=== PATIENT | female | born 2000 | race American Indian/Alaskan Native ===

== ENCOUNTER 2021-03-05 22:30 | Emergency (ER) | payer OTHER, SELFPAY ==
--- NOTE | ~2021-03-05 | US_ITS ---
EXAMINATION: US OBSTETRICAL ULTRASOUND CLINICAL INFORMATION: Rule out ectopic . COMPARISON: None. LMP: 01/12/2021. Gestational age by maternal dates is 7 weeks 4 days. Estimated date of delivery by maternal dates is 10/19/2021. TECHNIQUE: Transabdominal sonographic evaluation of the pelvis. FINDINGS: There is a single intrauterine gestational sac with visible yolk sac, embryo/fetus, and cardiac activity. There is a hypoechoic area adjacent to the gestational sac measuring 1 x 0.4 x 0.4 cm. This may represent a small subchorionic bleed. HR: 167 beats per minute. CRL (crown rump length): 3.52 cm (10 weeks 3 days +/- 4 days). ALYSSA (estimated date of delivery): 09/29/2021 +/- 4 days. MATERNAL ADNEXA: The right maternal ovary measures 3 x 1.6 x 1.9 cm. No adnexal mass. The left maternal ovary measures 2.9 x 1.9 x 2.4 cm. No adnexal mass. There is no significant maternal adnexal mass. No maternal pelvic ascites. US/US OB <= 14 weeks fetus IMPRESSION: 1. Single intrauterine gestation with ultrasound gestational age of 10 weeks 3 days +/- 4 days. 2. Estimated date of delivery is 09/29/2021 +/- 4 days. 3. Likely small subchorionic hemorrhage.
[2021-03-05 22:36] VITALS: BP 113/68; PULSE 101; RESP 18; TEMP 36.9; O2SAT 98; BMI 25.3
--- NOTE | 2021-03-05 22:55 | ED.ABDPAIN ---
HPI - Abdominal Pain General Chief Complaint: Nausea/Vomiting/Diarrhea Stated Complaint: ABD PAIN Time Seen by Provider: 03/05/21 22:48 Source: patient Mode of arrival: ambulatory Limitations: no limitations History of Present Illness HPI narrative: patient comes to the emergency room complaining of abdominal pain. Patient states it is sharp, nonradiating, periumbilical and hurts in the right lower quadrant as well. Patient denies diarrhea, she had 2 episodes of vomiting prior to arrival. Patient states the pain is constant, but this gradually getting worse. Related Data Previous Rx's Medication Instructions Recorded nitrofurantoin monohyd/m-cryst 100 mg PO BID #14 cap 03/06/21 [Macrobid] 308-[id number] ac-dha 1 pkg PO DAILY #60 ea 03/06/21 [Prena1 True] Allergies Allergy/AdvReac Type Severity Reaction Status Date / Time No Known Allergies Allergy Verified 03/05/21 22:36 Review of Systems Review of Systems Constitutional : No Weight loss, No Fever, No Chills, No Night Sweats, No Fatigue, No Malaise ENT/Mouth : No Hearing loss, No Ear Pain, No Nasal Congestion, No Sinus Pain, No Hoarseness, No sore throat, No Rhinorrhea, No Swallowing Difficulty Eyes: No Eye Pain, No Swelling, No Redness, No Foreign Body, No Discharge, No Vision Changes Cardiovascular : No Chest Pain, No SOB, No Dyspnea on Exertion, No Orthopnea, No Edema, No Palpitations Respiratory : No Cough, No Sputum, No Wheezing, No Smoke Exposure, No Dyspnea Gastrointestinal : complaining of nausea and vomiting, No Diarrhea, No Constipation, complaining of right right lower quadrant pain, No Hematochezia, No Melena Genitourinary : no irregular bleeding, No Dysuria, No Urinary Frequency, No Hematuria, No Urinary Incontinence, No Urgency, No Flank Pain, No Urinary Flow Changes, No Hesitancy Musculoskeletal : No joint pain, No Myalgias, No Joint Swelling Skin : No Skin Lesions, No rash Neuro : No Weakness, No Numbness, No Paresthesias, No Loss of Consciousness, No Dizziness, No Headache Psych : No Anxiety/Panic, No Depression, No SI/HI/AH/VH, No Social Issues, Heme/Lymph: No Bruising, No Bleeding,No Lymphadenopathy Endocrine : No Polyuria, No Polydipsia, No Temperature Intolerance Physical Exam Vital Signs: Vital Signs: Last Vital Signs Temp 98.5 F 03/05/21 22:36 Pulse 70 03/06/21 01:51 Resp 17 03/06/21 01:51 BP 118/62 03/06/21 01:51 Pulse Ox 99 03/06/21 01:51 Body Mass Index 25.3 Appearance: Alert. Oriented X3. No acute distress. Eyes: Pupils equal, round and reactive to light. ENT: Pharynx normal. Neck: Normal inspection. Neck supple. No lymph nodes noted. No crepitus CVS: Normal heart rate and rhythm. Pulses normal. Normal S1 and S2 Respiratory: No respiratory distress. Breath sounds normal. No Wheezing. No rales Abdomen: Soft , tenderness to palpation over the right lower quadrant, no rebound, no guarding, No rigidity. No distention. Skin: Skin warm and dry. Normal skin color. Normal skin turgor. Extremities: No lower extremity edema. No lower extremity edema. No Lacerations. No Rash Neuro: Oriented X 3. No motor deficit. No sensory deficit. Moving all extermities. No slurred speech. Course Course Course Narrative: patient no longer having any abdominal pain. I discussed the ultrasound with the patient and her partner, including that there is a small subchorionic hemorrhage, likely to reabsorb, but there is a small probability of this creating a spontaneous . Patient will follow-up with her primary care physician MDM - Abdominal Pain Lab Data Result diagrams: 03/05/21 23:43 03/05/21 23:43 Labs: Lab Results 03/05/21 03/05/21 03/05/21 Range/Units 22:47 22:47 22:47 WBC (4.8-10.8) X10*3/uL RBC (4.20-5.50) X10*6/uL Hgb (12.0-16.0) g/dl Hct (37-47) % MCV (80-98) fL MCH (27.0-33.0) pg MCHC (31.0-35.0) g/dl RDW (11.0-16.0) % Plt Count (160-400) X10*3/uL MPV (9.4-12.3) fL Immature Gran % (Auto) (0.0-0.4) % Neut % (Auto) (45-73) % Lymph % (Auto) (20-40) % [place] % (Auto) (2-11) % Eos % (Auto) (0-4) % Baso % (Auto) (0-2) % Lymph # (Auto) (1.2-4.9) X10*3/uL [place] # (Auto) (0.1-1.2) X10*3/uL Eos # (Auto) (0.0-0.4) X10*3/uL Baso # (Auto) (0.0-0.2) X10*3/uL Abs Immat Gran (auto) (0.00-0.03) X10*3/uL Absolute Neuts (auto) (2.0-8.3) X10*3/uL Absolute Nucleated RBC (0.0-0.012) X10*3/uL Nucleated RBC % (auto) (0.0-0.2) /100WBC Sodium (135-145) mmol/L Potassium (3.3-5.1) mmol/L Chloride (96-108) mmol/L Carbon Dioxide (22-29) mmol/L Anion Gap (12-20) BUN (9-16) mg/dL Creatinine (0.5-1.4) mg/dL Estim Creat Clear Calc Estimated GFR Random Glucose (60-115) mg/dL Calcium (8.4-10.2) mg/dL Total Bilirubin (0.0-1.0) mg/dL Direct Bilirubin (0.0-0.5) mg/dL AST (5-31) U/L ALT (0-31) U/L Alkaline Phosphatase (39-117) U/L Total Protein (6.5-8.0) g/dL Albumin (3.5-5.0) g/dL Lipase (8-78) U/L Beta HCG, Quant mIU/mL Urine Color YELLOW Urine Appearance CLEAR Urine pH 6.5 (5.0-8.0) Ur Specific [place] 1.020 (1.005-1.025) Urine Protein TRACE (NEG-TRACE) MG/DL Urine Glucose (UA) NEG (NEG) MG/DL Urine Ketones NEG (NEG) MG/DL Urine Blood NEG (NEG) Urine Nitrite NEG (NEG) Ur Leukocyte Esterase TRACE H (NEG) Urine RBC 0-2 (0) /HPF Urine WBC 1-4 (0-4) /HPF Ur Squamous Epith Cells 2+ /LPF Urine Bacteria TRACE /LPF Urine Mucus TRACE /LPF Urine Test POSITIVE H (NEGATIVE) Urine Opiates Screen Not Detected (Not Detect) Ur Barbiturates Screen Not Detected (Not Detect) Ur Phencyclidine Scrn Not Detected (Not Detect) Ur Amphetamines Screen Not Detected (Not Detect) U Benzodiazepines Scrn Not Detected (Not Detect) Urine Cocaine Screen Not Detected (Not Detect) U Marijuana (THC) Screen POSITIVE H (Not Detect) 03/05/21 03/05/21 Range/Units 23:43 23:43 WBC 9.8 (4.8-10.8) X10*3/uL RBC 3.93 L (4.20-5.50) X10*6/uL Hgb 11.7 L (12.0-16.0) g/dl Hct 34.8 L (37-47) % MCV 88.5 (80-98) fL MCH 29.8 (27.0-33.0) pg MCHC 33.6 (31.0-35.0) g/dl RDW 13.5 (11.0-16.0) % Plt Count 229 (160-400) X10*3/uL MPV 11.2 (9.4-12.3) fL Immature Gran % (Auto) 0.2 (0.0-0.4) % Neut % (Auto) 72.2 (45-73) % Lymph % (Auto) 18.6 L (20-40) % [place] % (Auto) 6.8 (2-11) % Eos % (Auto) 2.1 (0-4) % Baso % (Auto) 0.1 (0-2) % Lymph # (Auto) 1.8 (1.2-4.9) X10*3/uL [place] # (Auto) 0.7 (0.1-1.2) X10*3/uL Eos # (Auto) 0.2 (0.0-0.4) X10*3/uL Baso # (Auto) 0.0 (0.0-0.2) X10*3/uL Abs Immat Gran (auto) 0.02 (0.00-0.03) X10*3/uL Absolute Neuts (auto) 7.1 (2.0-8.3) X10*3/uL Absolute Nucleated RBC 0.000 (0.0-0.012) X10*3/uL Nucleated RBC % (auto) 0.0 (0.0-0.2) /100WBC Sodium 137 (135-145) mmol/L Potassium 3.7 (3.3-5.1) mmol/L Chloride 107 (96-108) mmol/L Carbon Dioxide 22 (22-29) mmol/L Anion Gap 12 (12-20) BUN 6 L (9-16) mg/dL Creatinine 0.70 (0.5-1.4) mg/dL Estim Creat Clear Calc 122.6 Estimated GFR > 60 Random Glucose 92 (60-115) mg/dL Calcium 8.4 (8.4-10.2) mg/dL Total Bilirubin 0.2 (0.0-1.0) mg/dL Direct Bilirubin < 0.2 (0.0-0.5) mg/dL AST 14 (5-31) U/L ALT 9 (0-31) U/L Alkaline Phosphatase 57 (39-117) U/L Total Protein 6.2 L (6.5-8.0) g/dL Albumin 3.7 (3.5-5.0) g/dL Lipase 11 (8-78) U/L Beta HCG, Quant 37483 mIU/mL Urine Color Urine Appearance Urine pH (5.0-8.0) Ur Specific [place] (1.005-1.025) Urine Protein (NEG-TRACE) MG/DL Urine Glucose (UA) (NEG) MG/DL Urine Ketones (NEG) MG/DL Urine Blood (NEG) Urine Nitrite (NEG) Ur Leukocyte Esterase (NEG) Urine RBC (0) /HPF Urine WBC (0-4) /HPF Ur Squamous Epith Cells /LPF Urine Bacteria /LPF Urine Mucus /LPF Urine Test (NEGATIVE) Urine Opiates Screen (Not Detect) Ur Barbiturates Screen (Not Detect) Ur Phencyclidine Scrn (Not Detect) Ur Amphetamines Screen (Not Detect) U Benzodiazepines Scrn (Not Detect) Urine Cocaine Screen (Not Detect) U Marijuana (THC) Screen (Not Detect) Imaging Data US - abdomen: Radiologist's impression: FINDINGS: There is a single intrauterine gestational sac with visible yolk sac, embryo/fetus, and cardiac activity. There is a hypoechoic area adjacent to the gestational sac measuring 1 x 0.4 x 0.4 cm. This may represent a small subchorionic bleed. HR: 167 beats per minute. CRL (crown rump length): 3.52 cm (10 weeks 3 days +/- 4 days). ALYSSA (estimated date of delivery): 09/29/2021 +/- 4 days. MATERNAL ADNEXA: The right maternal ovary measures 3 x 1.6 x 1.9 cm. No adnexal mass. The left maternal ovary measures 2.9 x 1.9 x 2.4 cm. No adnexal mass. There is no significant maternal adnexal mass. No maternal pelvic ascites. US/US OB <= 14 weeks fetus IMPRESSION: 1. Single intrauterine gestation with ultrasound gestational age of 10 weeks 3 days +/- 4 days. 2. Estimated date of delivery is 09/29/2021 +/- 4 days. 3. Likely small subchorionic hemorrhage. Discharge Plan Discharge Clinical Impression: Qualifiers: Weeks of gestation: 10 weeks Qualified Code(s): Z3A.10 - 10 weeks gestation of Abdominal pain Qualifiers: Abdominal location: right lower quadrant Qualified Code(s): R10.31 - Right lower quadrant pain UTI (urinary tract infection) during Qualifiers: Trimester: first trimester Qualified Code(s): O23.41 - Unspecified infection of urinary tract in , first trimester Patient Disposition: Home, Self-Care Instructions: Abdominal Pain in (ED) Additional Instructions: Please follow-up with your primary care physician tomorrow. If you have any worsening or new symptoms, please return to the emergency room or call 911 Prescriptions: New Prena1 True 30 mg iron- 1.4 mg-300 mg combo pack 1 pkg PO DAILY Qty: 60 RF: 0 nitrofurantoin monohyd/m-cryst [Macrobid] 100 mg capsule 100 mg PO BID Qty: 14 RF: 0 Referrals: Robert Edouard MD [Physician] - 2 days [facility] Past Medical History Medical History Patient denies medical problems Social History Social History Alcohol intake: never Patient Tobacco Use Status: Never used Tobacco Use of substances other than those prescribed or required for medical reasons: Yes Substance Use Type: Marijuana Substance Use Frequency: Daily Advance Directives: No Advance Directives Information Provided: No Patient : No
[2021-03-05 23:00] LABS: Glucose Urine UA NEG (NEG); Leukocyte Esterase Urine TRACE (NEG); Nitrite Urine NEG (NEG); PH 6.5 (5.0-8.0); UACC Culture Trigger YES; Urine Blood NEG (NEG); Urine Ketones NEG (NEG); Urine Protein TRACE MG/DL (NEG-TRACE)
[2021-03-05 23:02] LABS: Appearance Urine CLEAR; Color Urine YELLOW
[2021-03-05 23:03] LABS: UPreg QC Valid YES; Urine Pregnancy POSITIVE (NEGATIVE)
[2021-03-05 23:15] LABS: Bacteria Urine TRACE /LPF; Mucus Urine TRACE /LPF; RBC Urine 0-2 /HPF (0); Squamous Epithelial Cell Urine 2+ /LPF
[2021-03-05 23:49] LABS: Basophils Percent Auto 0.1 % (0-2); Eosinophils Absolute Auto 0.2 X10*3/uL (0.0-0.4); Eosinophils Percent Auto 2.1 % (0-4); Hematocrit 34.8 % (37-47); Hemoglobin 11.7 g/dl (12.0-16.0); Imm Gran Abs Auto 0.02 X10*3/uL (0.00-0.03); Imm Gran Pct Auto 0.2 % (0.0-0.4); Lymphocytes Absolute Auto 1.8 X10*3/uL (1.2-4.9); Lymphocytes Percent Auto 18.6 % (20-40); MANUAL DIFF FLAG NO; Mean Corpuscular HGB Conc 33.6 g/dl (31.0-35.0); Mean Corpuscular Hemoglobin 29.8 pg (27.0-33.0); Mean Corpuscular Volume 88.5 fL (80-98); Mean Platelet Volume 11.2 fL (9.4-12.3); Monocytes Absolute Auto 0.7 X10*3/uL (0.1-1.2); Monocytes Percent Auto 6.8 % (2-11); Neutrophils Absolute Auto 7.1 X10*3/uL (2.0-8.3); Neutrophils Percent Auto 72.2 % (45-73); Platelet Count 229 X10*3/uL (160-400); Red Blood Count 3.93 X10*6/uL (4.20-5.50); Red Cell Distribution Width 13.5 % (11.0-16.0); White Blood Count 9.8 X10*3/uL (4.8-10.8)
[2021-03-06 00:21] LABS: Alanine Aminotransferase 9 U/L (0-31); Albumin Level 3.7 g/dL (3.5-5.0); Alkaline Phosphatase 57 U/L (39-117); Anion Gap 12 (12-20); Aspartate Amino Transferase 14 U/L (5-31); Bilirubin Direct < 0.2 mg/dL (0.0-0.5); Bilirubin Total 0.2 mg/dL (0.0-1.0); Blood Urea Nitrogen 6 mg/dL (9-16); Calcium 8.4 mg/dL (8.4-10.2); Carbon Dioxide 22 mmol/L (22-29); Chloride 107 mmol/L (96-108); Creatinine Clr Calc Pharmacy 122.6; Estimated Glomerular Filt Rate > 60; Glucose Random 92 mg/dL (60-115); Lipase 11 U/L (8-78); Potassium 3.7 mmol/L (3.3-5.1); Sodium 137 mmol/L (135-145); Total Protein 6.2 g/dL (6.5-8.0)
[2021-03-06 01:01] LABS: HCG Quantitative 52836 mIU/mL
[2021-03-06 01:35] LABS: Amphetamine Screen Urine Not Detected (Not Detect); Barbiturates, Urine Not Detected (Not Detect); Benzodiazepines Screen Urine Not Detected (Not Detect); Cannabinoid Screen Urine POSITIVE (Not Detect); Cocaine Screen Urine Not Detected (Not Detect); Opiate Screen Urine Not Detected (Not Detect); Phencyclidine Screen Urine Not Detected (Not Detect)
[2021-03-06 01:51] VITALS: BP 118/62; PULSE 70; RESP 17; O2SAT 99
== END 2021-03-06 03:37 | disposition home or self-care (01) ==
PROVIDERS: Emergency Provider Emergency Medicine; PCP Pediatrics
DX: O23.41 Unspecified infection of urinary tract in pregnancy, first trimester (principal); O99.321 Drug use complicating pregnancy, first trimester; F12.90 Cannabis use, unspecified, uncomplicated; Z3A.10 10 weeks gestation of pregnancy
CPT/HCPCS: 36415; 76801; 80048; 80076; 80307; 81001; 81003; 81025; 83690; 84702; 85025; 87086; 99283; 99284

== ENCOUNTER 2021-07-31 08:10 | Emergency (ER) | payer OTHER, SELFPAY ==
--- NOTE | ~2021-07-31 | XR_ITS ---
EXAMINATION: XR ANKLE, RIGHT CLINICAL INFORMATION: Right ankle pain COMPARISON: None TECHNIQUE: AP, lateral, and mortise views of the right ankle. FINDINGS: There is moderate lateral malleolar soft tissue swelling. The ankle mortise and subtalar joints are normal. No visible acute fracture, dislocation or subluxation seen. XR/XR ankle RT 2V IMPRESSION: Moderate lateral malleolar soft tissue swelling. No visible acute fracture or dislocation seen.
--- NOTE | ~2021-07-31 | XR_ITS ---
EXAMINATION: XR FOOT, RIGHT CLINICAL INFORMATION: Pain and swelling right ankle and foot. COMPARISON: Radiographs right ankle 07/31/2021 TECHNIQUE: AP, lateral, and oblique views of the right foot. FINDINGS: There is no acute or healing fracture or dislocation. Bony mineralization is normal. There is mild spurring proximal dorsal tarsal navicular. No arthropathy. XR/XR foot RT min 3V IMPRESSION: No fracture or dislocation or arthropathy.
[2021-07-31 08:23] VITALS: BP 134/91; PULSE 110; RESP 22; TEMP 36.8; O2SAT 100; BMI 25.3
--- NOTE | 2021-07-31 09:09 | ED.LOWEXIN ---
HPI - Extremity Injury (Lower) General Chief Complaint: Extremity Injury, Lower Stated Complaint: R ANKLE INJ Time Seen by Provider: 07/31/21 09:09 Source: patient and family Mode of arrival: ambulatory Limitations: no limitations History of Present Illness HPI Narrative: 20-year-old female reports that she was walking up the stairs and she missed her step and almost fell although was able to catch herself although twisted her right ankle and since then has been having pain/swelling worse with walking/movement or palpation. Denies head injury loss of consciousness. Denies any other injuries complaints or concerns. Denies any paresthesias. MD complaint: ankle injury Onset (ago): day(s) (Yesterday) Type of Injury: other (Twist injury patient unsure which direction) Place: home Severity: severe Severity scale (1-10): >10 Relieving factors: nothing Exacerbating factors: weight bearing, movement and palpation Context: fall Associated symptoms: swelling and able to partially bear weight Other symptoms: none Related Data Previous Rx's Medication Instructions Recorded nitrofurantoin 100 mg PO BID #14 cap 03/06/21 monohydrate/macrocrystals 100 mg capsule (Macrobid) vit no.105-iron 30 1 pkg PO DAILY #60 ea 03/06/21 mg-folic acid 1.4 mg-dha 300 mg oral pack (Prena1 True) ibuprofen 800 mg tablet 800 mg PO Q8H PRN #14 tab 07/31/21 oxycodone 5 mg tablet 5 mg PO Q6H PRN #14 tab 07/31/21 Allergies Allergy/AdvReac Type Severity Reaction Status Date / Time No Known Allergies Allergy Verified 03/05/21 22:36 Review of Systems Review of Systems: Constitutional : No Weight loss, No Fever, No Chills, No Night Sweats, No Fatigue, No Malaise ENT/Mouth : No Hearing loss, No Ear Pain, No Nasal Congestion, No Sinus Pain, No Hoarseness, No sore throat, No Rhinorrhea, No Swallowing Difficulty Eyes: No Eye Pain, No Swelling, No Redness, No Foreign Body, No Discharge, No Vision Changes Cardiovascular : No Chest Pain, No SOB, No Dyspnea on Exertion, No Orthopnea, No Edema, No Palpitations Respiratory : No Cough, No Sputum, No Wheezing, No Smoke Exposure, No Dyspnea Gastrointestinal : No Nausea, No Vomiting, No Diarrhea, No Constipation, No abdominal Pain, No Hematochezia, No Melena Genitourinary : no irregular bleeding, No Dysuria, No Urinary Frequency, No Hematuria, No Urinary Incontinence, No Urgency, No Flank Pain, No Urinary Flow Changes, No Hesitancy Musculoskeletal : + joint pain/swelling, No Myalgias Skin : No Skin Lesions, No rash Neuro : No Weakness, No Numbness, No Paresthesias, No Loss of Consciousness, No Dizziness, No Headache Psych : No Anxiety/Panic, No Depression, No SI/HI/AH/VH, No Social Issues, Heme/Lymph: No Bruising, No Bleeding,No Lymphadenopathy Endocrine : No Polyuria, No Polydipsia, No Temperature Intolerance Yes all other systems are reviewed and are negative [facility] Past Medical History Attestation statement: The following information was validated with the patient. Medical History Patient denies medical problems Social History Social History Alcohol intake: never Patient Tobacco Use Status: Never used Tobacco Substance Use Type: Marijuana Advance Directives: No Advance Directives Information Provided: Yes Patient : No Physical Exam Vital Signs: Vital Signs: Last Vital Signs Temp 98.2 F 07/31/21 08:23 Pulse 110 H 07/31/21 08:23 Resp 22 H 07/31/21 08:23 BP 134/91 H 07/31/21 08:23 Pulse Ox 100 07/31/21 08:23 Body Mass Index 25.3 vital signs have been reviewed as normal and appeared to be correct. Blood pressure 134/91 Heart rate 110 Respiration rate 22 Temperature normal. Oxygen saturation normal. Appearance: Alert. Oriented X3. No acute distress. Head: Normal external exam. Normocephalic. Atraumatic. Eyes: PERRLA. EOMI. Conjunctiva and sclera normal. Eyelids normal. ENT: Pharynx normal. Uvula midline. Moist mucous membranes. Neck: Normal inspection. Neck supple. FROM. CVS: Normal heart rate and rhythm. Respiratory: No respiratory distress. Painless inspiration. Skin: Skin warm and dry. Normal skin color. Normal skin turgor. No rashes/lesions/lacerations noted. Extremities: Patient with moderate TTP and Soft tissue swelling to right lateral malleolus is with limited range of motion due to pain and swelling. No obvious deformities or tendon/ligament injury. Achilles tendon is intact. No calf tenderness is noted. No lower extremity edema. Otherwise all other Extremities exhibit normal range of motion and nontender. Neuro: Oriented X 3. No motor deficit. No sensory deficit. Reflexes normal. Normal steady gait. No focal neuro deficits noted. Vascular: + radial pulses/+ 2 distal pedal pulses/+2 dorsalis pedis b/l. Normal cap refill. No cyanosis noted to upper extremity nails and lower extremity toes nails. Course Course Course Narrative: 20-year-old female reports that she was walking up the stairs and she missed her step and almost fell although was able to catch herself although twisted her right ankle and since then has been having pain/swelling worse with walking/movement or palpation. Denies head injury loss of consciousness. Denies any other injuries complaints or concerns. Denies any paresthesias. X-ray of right foot/ankle obtained and negative for any acute processes such as fractures only reveals soft tissue swelling. Therefore will place in an Aircast provide crutches and treat symptomatically and instructed follow up with Orthopedic if symptoms persist for longer than 2-3 weeks. Patient understands agrees with this plan. MDM - Extremity Injury (Lower) Medical Records Attestation: I reviewed the patient's medical records. Imaging Data Right ankle/foot x-ray: Attestation: I personally reviewed and interpreted this imaging study as follows: Radiologist's impression: FINDINGS: There is moderate lateral malleolar soft tissue swelling. The ankle mortise and subtalar joints are normal. No visible acute fracture, dislocation or subluxation seen.? XR/XR ankle RT 2V IMPRESSION: Moderate lateral malleolar soft tissue swelling. No visible acute fracture or dislocation seen. FINDINGS: There is no acute or healing fracture or dislocation. Bony mineralization is normal. There is mild spurring proximal dorsal tarsal navicular. No arthropathy.? XR/XR foot RT min 3V IMPRESSION: No fracture or dislocation or arthropathy. Procedures Orthopedic Splinting/Casting Injury #1: Side: right Lower Extremity Injury Location: ankle and foot Lower Extremity Immobilizer: AirCast Other Orthopedic Equipment: crutches Discharge Plan Discharge Clinical Impression: Ankle sprain and strain Patient Disposition: Home, Self-Care Instructions: Ankle Sprain (ED), Crutch Instructions (ED) Prescriptions: New ibuprofen 800 mg tablet 800 mg PO Q8H PRN (Reason: pain) Qty: 14 RF: 0 oxycodone 5 mg tablet 5 mg PO Q6H PRN (Reason: pain) Qty: 14 RF: 0 No Action Prena1 True 30 mg iron- 1.4 mg-300 mg combo pack 1 pkg PO DAILY Qty: 60 RF: 0 nitrofurantoin monohyd/m-cryst [Macrobid] 100 mg capsule 100 mg PO BID Qty: 14 RF: 0 Referrals: Eric Chua MD [Physician] - 2 weeks (If symptoms persist for longer than 2-3 weeks make a follow-up appointment) Jaquelin Veliz [Primary Care Provider] - 2 days Stand Alone Forms: Work/School Release Print Language: Armenian
[2021-07-31] MEDS: oxyCODONE HCl Immed Release 5 MG TABLET PO (09:22)
[2021-07-31] MEDS: Ibuprofen 800 MG TABLET PO (09:22)
== END 2021-07-31 10:30 | disposition home or self-care (01) ==
PROVIDERS: Emergency Provider Emergency Medicine; PCP Pediatrics
DX: S93.401A Sprain of unspecified ligament of right ankle, initial encounter (principal); M25.571 Pain in right ankle and joints of right foot; W07.XXXA Fall from chair, initial encounter; Y93.9 Activity, unspecified; Y92.9 Unspecified place or not applicable; Y99.9 Unspecified external cause status; Z79.899 Other long term (current) drug therapy
CPT/HCPCS: 29515; 73600; 73630; 99283; 99284

== ENCOUNTER 2021-08-08 10:04 | Emergency (ER) | payer OTHER, SELFPAY ==
--- NOTE | ~2021-08-08 | XR_ITS ---
EXAMINATION: XR ANKLE, RIGHT CLINICAL INFORMATION: Right ankle pain COMPARISON: July 31, 2021 TECHNIQUE: AP, lateral, and mortise views of the right ankle. FINDINGS: There is a large amount soft tissue swelling seen about the lateral malleolus and lateral aspect of the midfoot. No dislocation is evident. Ankle mortise appears intact. There is evidence of either acute or chronic nondisplaced fracture/tug lesion involving the dorsal proximal navicula. Clinical correlation to site of pain is recommended and if the pain is centered about the dorsal medial aspect of the midfoot this may represent an acute finding but it does appear to be remote from the majority of soft tissue swelling. XR/XR ankle RT min 3V IMPRESSION: Large amount soft tissue swelling about the dorsal lateral aspect of the right ankle and foot without dislocation or definite fracture in this location. Question acute or chronic injury dorsal proximal aspect of the navicula.
--- NOTE | ~2021-08-08 | CT_ITS ---
EXAMINATION: CT FOOT WITHOUT CONTRAST, RIGHT CLINICAL INFORMATION: Right foot pain with bruising and swelling. COMPARISON: Radiographs from 07/31/2021 and 08/08/2021. TECHNIQUE: Multidetector volumetric imaging of the right foot performed without IV contrast. Coronal and sagittal reformatted images are obtained and reviewed. This CT examination was performed using dose optimization techniques as appropriate, variously including the following: *Automated exposure control *Adjustment of mA and/or kV according to patient size (this includes techniques or standardized protocols for targeted exams where dose is matched to indication/reason for exam; i.e. extremities or head) *Use of iterative reconstruction technique DLP: 171 mGy-cm FINDINGS: There is no acute fracture seen. There is corticated ossification at the dorsal aspect of the navicular base. This may be congenital. Joint spaces are maintained. There is mild lateral soft tissue swelling at the ankle. No underlying fracture. The ankle mortise is congruent. No ankle joint effusion noted. The visualized ankle tendons are grossly intact with appropriate course. CT/CT foot RT wo con IMPRESSION: Mild lateral soft tissue swelling at the ankle. No acute osseous abnormality.
[2021-08-08 10:33] VITALS: BP 119/60; PULSE 76; RESP 16; TEMP 36.7; O2SAT 98; BMI 25.0
--- NOTE | 2021-08-08 10:41 | ED.GENADULT ---
HPI - General Adult General Chief complaint: Extremity Injury, Lower Stated complaint: r ankle pain inj at home week ago Time Seen by Provider: 08/08/21 10:41 Source: patient Limitations: language barrier History of Present Illness HPI narrative: Patient returns ER with continued right foot and ankle pain. Patient originally injured her foot going up the stairs on 07/31/2021 it was evaluated in the ER that time and had a negative foot x-ray. Patient continues with increased swelling. In lateral ankle tenderness. Pain increases with range of motion or weight-bearing. Patient states she has tried to stay off it but it is difficult with a young child. Pains is a 6/10. Patient denies any other complaints. Symptoms are moderate. No nausea vomiting fever chills shortness of breath or other complaints at this time Related Data Previous Rx's Medication Instructions Recorded nitrofurantoin 100 mg PO BID #14 cap 03/06/21 monohydrate/macrocrystals 100 mg capsule (Macrobid) vit no.105-iron 30 1 pkg PO DAILY #60 ea 03/06/21 mg-folic acid 1.4 mg-dha 300 mg oral pack (Prena1 True) ibuprofen 800 mg tablet 800 mg PO Q8H PRN #14 tab 07/31/21 oxycodone 5 mg tablet 5 mg PO Q6H PRN #14 tab 07/31/21 Allergies Allergy/AdvReac Type Severity Reaction Status Date / Time No Known Allergies Allergy Verified 03/05/21 22:36 Review of Systems Constitutional: Constitutional: Denies chills, Denies fever(s) and Denies headache(s) ENT: Denies headache(s) and Denies sore throat Cardiovascular: Cardiovascular: Denies chest pain and Denies dyspnea Respiratory: Respiratory: Denies dyspnea Gastrointestinal: Gastrointestinal: Denies diarrhea, Denies nausea and Denies vomiting Musculoskeletal: Musculoskeletal: Denies back pain and Reports arthralgias Comments: Right ankle foot pain Neurologic: Denies headache(s) Psychiatric: Psychiatric: Denies anxiety Endocrine: Endocrine: Reports no additional endocrine complaints Hematologic/Lymphatic: Hematologic/Lymphatic: Reports no additional hematologic/lymphatic complaints Allergic/Immunologic: Allergic/Immunologic: Reports no additional allergic/immunologic complaints [facility] Past Medical History Attestation statement: The following information was validated with the patient. Medical History Patient denies medical problems Social History Social History Alcohol intake: never Patient Tobacco Use Status: Never used Tobacco Substance Use Type: Marijuana Advance Directives: No Advance Directives Information Provided: No Patient : No Physical Exam Vital Signs: Vital Signs: Last Vital Signs Temp 98.0 F 08/08/21 10:33 Pulse 76 08/08/21 10:33 Resp 16 08/08/21 10:33 BP 119/60 08/08/21 10:33 Pulse Ox 98 08/08/21 10:33 BMI result Body Mass Index 25.0 vital signs have been reviewed as normal and appeared to be correct. Blood pressure normal. Heart rate normal. Respiration rate normal. Temperature normal. Oxygen saturation normal. Appearance: Alert. Oriented X3. No acute distress. Head: Normal external exam. Normocephalic. Atraumatic. Eyes: PERRLA. EOMI. Conjunctiva and sclera normal. Eyelids normal. ENT: Pharynx normal. Uvula midline. Moist mucous membranes. N Neck: Soft full range of motion CVS: Heart regular rate and rhythm no murmurs and rubs Respiratory: Breath sounds are clear to auscultation bilaterally. No accessory muscle use noted. Back: Full range of motion noted. Skin: Skin warm and dry. Normal skin color. Positive ecchymosis noted 2nd 3rd distal right toes. Positive edema to the right ankle and foot Extremities: Positive tenderness right lateral malleolus minimal tenderness over the dorsum of the right for positive pulses positive supination edema noted Neuro: Oriented X 3. No motor deficit. No sensory deficit. Reflexes normal. Course Course Course Narrative: Navicular fracture Right foot contusion Right ankle sprain Toe fracture Patient was originally seen on 07/31/2021 with a negative foot x-ray at that time. Patient returns today with increased swelling and pain right lateral ankle to dorsum of the foot. Ankle x-ray done today and showed question old navicular injury versus acute. Will get a CT of the foot at this time case discussed with Dr. Us she agrees with treatment and plan. 12:[address] scan showed no obvious signs of navicular fracture patient was contacted and is aware Medical Decision Making Imaging Data ct foot: Radiologist's impression: [address] [address] [address] Scan Report Signed Patient: Prince Plunkett MR#: [id number] : 2000 Acct:[id number] Age/Sex: 20 / F ADM Date: 08/08/21 Loc: HO.ED Attending Dr: Ordering Physician: Jaime Elias Date of Service: 08/08/21 Procedure(s): CT foot RT wo con Accession Number(s): [id number] cc: Jaime Elias ~ EXAMINATION: CT FOOT WITHOUT CONTRAST, RIGHT CLINICAL INFORMATION: Right foot pain with bruising and swelling.? ? COMPARISON: Radiographs from 07/31/2021 and 08/08/2021.? ? ? TECHNIQUE: Multidetector volumetric imaging of the right foot performed without IV contrast. Coronal and sagittal reformatted images are obtained and reviewed. This CT examination was performed using dose optimization techniques as appropriate, variously including the following: *Automated exposure control *Adjustment of mA and/or kV according to patient size (this includes techniques or standardized protocols for targeted exams where dose is matched to indication/reason for exam; i.e. extremities or head) *Use of iterative reconstruction technique DLP: 171 mGy-cm FINDINGS: There is no acute fracture seen. There is corticated ossification at the dorsal aspect of the navicular base. This may be congenital. Joint spaces are maintained. There is mild lateral soft tissue swelling at the ankle. No underlying fracture. The ankle mortise is congruent. No ankle joint effusion noted. The visualized ankle tendons are grossly intact with appropriate course. CT/CT foot RT wo con IMPRESSION: Mild lateral soft tissue swelling at the ankle. No acute osseous abnormality.? Dictated By: Lobo Ricks MD Signed By: <Electronically signed by Lobo Ricks MD in OV> 08/08/21 1213 DD/ 1206 TD/TT:? Boat Carpenter: PRINCE Discharge Plan Discharge Clinical Impression: Pain in joint involving right ankle and foot Patient Disposition: Home, Self-Care Additional Instructions: Rest ice elevation Return if symptoms worsen Will call you with CT results Prescriptions: No Action Prena1 True 30 mg iron- 1.4 mg-300 mg combo pack 1 pkg PO DAILY Qty: 60 RF: 0 nitrofurantoin monohyd/m-cryst [Macrobid] 100 mg capsule 100 mg PO BID Qty: 14 RF: 0 ibuprofen 800 mg tablet 800 mg PO Q8H PRN (Reason: pain) Qty: 14 RF: 0 oxycodone 5 mg tablet 5 mg PO Q6H PRN (Reason: pain) Qty: 14 RF: 0 Stand Alone Forms: Work/School Release Interventions: ED Discharge Assessment Last Done: 08/08/21 12:04 Discharge Date/Time: 08/08/21 12:04
== END 2021-08-08 12:04 | disposition home or self-care (01) ==
PROVIDERS: Emergency Provider Emergency Medicine; PCP Pediatrics
DX: M25.571 Pain in right ankle and joints of right foot (principal); S93.401D Sprain of unspecified ligament of right ankle, subsequent encounter; X50.1XXD Overexertion from prolonged static or awkward postures, subsequent encounter
CPT/HCPCS: 73610; 73700; 99283; 99284

== ENCOUNTER 2021-11-27 12:25 | Emergency (ER) | payer OTHER, SELFPAY ==
--- NOTE | 2021-11-27 | ECG_ITS ---
Test Reason : CHEST PAIN Blood Pressure : / mmHG Vent. Rate : 088 BPM Atrial Rate : 088 BPM P-R Int : 164 ms QRS Dur : 088 ms QT Int : 354 ms P-R-T Axes : 011 059 016 degrees QTc Int : 428 ms Normal sinus rhythm Normal ECG When compared with ECG of 02-JAN-2015 11:11, No significant change was found Referred By: Generic ED Physician Electronically Signed By:TRINO SCHMIDT
[2021-11-27 12:36] VITALS: BP 124/63; PULSE 89; RESP 17; TEMP 36.6; O2SAT 98; BMI 33.7
[2021-11-27 12:54] LABS: MANUAL DIFF FLAG NO
[2021-11-27 12:57] LABS: Basophils Percent Auto 0.3 % (0-2); Eosinophils Absolute Auto 0.1 X10*3/uL (0.0-0.4); Eosinophils Percent Auto 0.5 % (0-4); Hematocrit 37.5 % (37.0-47.0); Imm Gran Abs Auto 0.03 X10*3/uL (0.00-0.03); Imm Gran Pct Auto 0.3 % (0.0-0.4); Lymphocytes Absolute Auto 1.3 X10*3/uL (1.2-4.9); Lymphocytes Percent Auto 12.3 % (20-40); Mean Corpuscular Volume 87.6 fL (80.0-98.0); Mean Platelet Volume 11.3 fL (9.4-12.3); Monocytes Absolute Auto 0.6 X10*3/uL (0.1-1.2); Monocytes Percent Auto 5.4 % (2-11); Neutrophils Absolute Auto 8.6 x10*3/uL (2.0-8.3); Neutrophils Percent Auto 81.2 % (45-73); Platelet Count 298 X10*3/uL (160-400); Red Blood Count 4.28 X10*6/uL (4.20-5.50); Red Cell Distribution Width 14.4 % (11.0-16.0); White Blood Count 10.5 X10*3/uL (4.8-10.8)
[2021-11-27 13:08] LABS: Anion Gap 12 (12-20); Blood Urea Nitrogen 8 mg/dL (9-16); Calcium 9.6 mg/dL (8.4-10.2); Carbon Dioxide 26 mmol/L (22-29); Chloride 104 mmol/L (96-108); Estimated Glomerular Filt Rate > 60; Glucose Random 106 mg/dL (60-115); Potassium 4.1 mmol/L (3.3-5.1); Sodium 138 mmol/L (135-145)
[2021-11-27 13:16] LABS: Troponin-I High Sensitivity < 3.5 ng/L (<3.5-17.0)
--- NOTE | 2021-11-27 15:51 | ED_ITS ---
HPI - Chest Pain General Chief Complaint: Chest Pain Stated Complaint: Chest pain Time Seen by Provider: 11/27/21 15:51 Source: patient Mode of arrival: ambulatory Limitations: no limitations History of Present Illness HPI narrative: Patient is a 21 year old female presenting to the emergency department today with epigastric pain. Patient states that she is having some epigastric pain and has been for the last 4 days. Patient states that it is worse with a deep breath and bending over. Patient denies any dizziness, lightheadedness, vomiting, fever, chills, blurry vision, double vision, loss of vision, chest pain, difficulty breathing, shortness of breath, back pain, night sweats, pain with urination, increased urinary frequency, increased urinary urgency, blood in her urine or stool, syncope or a near syncopal episode, recent trauma or falls, bowel incontinence, bladder incontinence, bowel retention, bladder retention, or any other complaints at this time. Pain location: epigastric Pain radiation: none Severity: mild Pain scale (0-10): 3 Quality: dull Relieving factors: nothing Exacerbating factors: nothing Associated symptoms: nausea Treatment prior to arrival: none Related Data Previous Rx's Medication Instructions Recorded nitrofurantoin 100 mg PO BID #14 cap 03/06/21 monohydrate/macrocrystals 100 mg capsule (Macrobid) vit no.105-iron 30 1 pkg PO DAILY #60 ea 03/06/21 mg-folic acid 1.4 mg-dha 300 mg oral pack (Prena1 True) ibuprofen 800 mg tablet 800 mg PO Q8H PRN #14 tab 07/31/21 oxycodone 5 mg tablet 5 mg PO Q6H PRN #14 tab 07/31/21 ondansetron 4 mg disintegrating 4 mg PO Q8H 3 Days #9 tab 11/27/21 tablet Allergies Allergy/AdvReac Type Severity Reaction Status Date / Time No Known Allergies Allergy Verified 03/05/21 22:36 Review of Systems Constitutional: Constitutional: Reports no additional constitutional complai nts, Denies chills, Denies fever(s) and Denies night sweats Eyes: Eyes: Reports no additional eye complaints, Denies blurry vision, Denies change in vision, Denies diplopia, Denies eye discharge, Denies loss of vision and Denies eye pain ENT: Denies dizziness Cardiovascular: Cardiovascular: Reports no additional cardiovascular complaints, Denies chest pain, Denies lightheadedness, Denies Loss of Consciousness and Denies dyspnea Respiratory: Respiratory: Reports no additional respiratory complaints and D enies dyspnea Gastrointestinal: Gastrointestinal: Reports no additional gastrointestinal complaints, Denies abdominal pain, Denies melena, Denies hematochezia, Denies change in bowel habits and Denies change in stool character Comments: epigastric pain Genitourinary: Genitourinary: Denies hematuria, Denies urinary frequency, Denies dysuria, Denies urinary incontinence, Denies urinary hesitancy and Denies urinary urgency Musculoskeletal: Musculoskeletal: Reports no additional musculoskeletal complaints, Denies numbness and Denies tingling Neurologic: Denies dizziness, Denies loss of vision, Denies numbness and Denies tingling Psychiatric: Psychiatric: Reports no additional psychiatric complaints Endocrine: Endocrine: Reports no additional endocrine complaints Hematologic/Lymphatic: Hematologic/Lymphatic: Reports no additional hematologic/lymphatic complaints Allergic/Immunologic: Allergic/Immunologic: Reports no additional allerg ic/immunologic complaints PMFSH Past Medical History Attestation statement: The following information was validated with the patient. Source: old records reviewed Medical History Patient denies medical problems Social History Social History Alcohol intake: never Patient Tobacco Use Status: Never used Tobacco Substance Use Type: Marijuana Advance Directives: No Advance Directives Information Provided: No Physical Exam Vital Signs: Vital Signs: Last Vital Signs Temp 97.9 F 11/27/21 12:36 Pulse 70 11/27/21 17:42 Resp 16 11/27/21 17:42 BP 118/64 11/27/21 17:42 Pulse Ox 98 11/27/21 17:42 BMI result Body Mass Index 33.7 Const: General: cooperative, no acute distress, alert and awake Nutritional Appearance: well nourished Orientation/consciousness: patient oriented x3 Limitations: no limitations HEENT: Head: Yes normal to inspection and Yes atraumatic Ears: hearing grossly normal bilaterally and external ears normal General nose exam: Normal external nose present, no nasal discharge noted and no epistaxis Face and sinus: Yes normal facial exam, No abrasion and No laceration Mouth: Normal oral and palatal mucosa present, no drooling and no muffled voice Eyes: General: appearance normal, both eyes and all related structures Periorbital: periorbital findings normal Eyelids: Yes eyelids normal Conjunctivae: conjunctivae normal Pupils: Equal, round and reactive pupils present EOM: EOMs intact bilaterally Neck: Neck: Yes normal visual inspection, Yes full ROM and Yes no lymphadenopathy Chest: Chest palpation & inspection: normal inspection of the chest Resp: Effort & Inspection: normal respiratory effort and able to speak in complete sentences Auscultation: clear to auscultation bilaterally Cardio: Rate: regular rate Rhythm: regular rhythm GI: Inspection: Yes normal to inspection Neuro: General: patient oriented x3 and moves all extremities Cranial nerves: Yes Equal, round and reactive pupils present Cognition (Neuro): normal cognition Motor exam (neuro): 5/5 motor strength present throughout Sensory Exam: Normal double simultaneous stimulation for sensation Coordina tion: [id number] test normal Extrem: General: Yes normal to inspection, Yes full ROM and Yes capillary refill normal Psych: Appearance: grossly normal Mental Status: mental status grossly normal Affect: normal affect Attitude: cooperative Thought process: Normal thought process present Thought content: Normal thought content present Insight: Good insight present (Psych) MDM - Chest Pain MDM Narrative Medical decision making narrative: Patient is a 21 year old female presenting to the emergency department today with epigastric pain. Patient's physical exam was unremarkable. Patient's blood work was unremarkable. Patient's urine showed no acute process. Patient's EKG was unremarkable. I explained my physical exam findings as well as all test results to the patient. I answered all questions asked by the patient. Patient received IM Toradol and PO Maalox which she stated helped her symptoms significantly. I stressed the importance of the patient taking her medication as prescribed. I stressed the importance of the patient following up with her primary care provider. I stressed the importance of the patient returning to the emergency department immediately if [her symptoms were to worsen or if she were to develop any dizziness, shortness of breath, difficulty breathing, chest pain, blurry vision, loss of vision, nausea, vomiting, abdominal pain, fever, chills, back pain, or any other complaints. Patient verbalized agreement and understanding with this treatment plan and discharge. Differential Diagnosis Differential diagnosis: Likely atypical chest pain and costochondritis Differential diagnosis: GERD Medical Records Data Attestation: I reviewed the patient's medical records. Lab Data Attestation: I reviewed the patient's lab results. Result diagrams: 11/27/21 12:46 11/27/21 12:46 Labs: Lab Results 11/27/21 11/27/21 11/27/21 Range/Units 12:46 12:46 12:46 WBC 10.5 (4.8-10.8) X10*3/uL RBC 4.28 (4.20-5.50) X10*6/uL Hgb 12.0 (12.0-16.0) g/dl Hct 37.5 (37.0-47.0) % MCV 87.6 (80.0-98.0) fL MCH 28.0 (27.0-33.0) pg MCHC 32.0 (31.0-35.0) g/dl RDW 14.4 (11.0-16.0) % Plt Count 298 (160-400) X10*3/uL MPV 11.3 (9.4-12.3) fL Immature Gran % (Auto) 0.3 (0.0-0.4) % Neut % (Auto) 81.2 H (45-73) % Lymph % (Auto) 12.3 L (20-40) % [place] % (Auto) 5.4 (2-11) % Eos % (Auto) 0.5 (0-4) % Baso % (Auto) 0.3 (0-2) % Lymph # (Auto) 1.3 (1.2-4.9) X10*3/uL Weston # (Auto) 0.6 (0.1-1.2) X10*3/uL Eos # (Auto) 0.1 (0.0-0.4) X10*3/uL Baso # (Auto) 0.0 (0.0-0.2) X10*3/uL Abs Immat Gran (auto) 0.03 (0.00-0.03) X10*3/uL Absolute Neuts (auto) 8.6 H (2.0-8.3) x10*3/uL Absolute Nucleated RBC 0.000 (0.0-0.012) X10*3/uL Nucleated RBC % (auto) 0.0 (0.0-0.2) /100WBC Sodium 138 (135-145) mmol/L Potassium 4.1 (3.3-5.1) mmol/L Chloride 104 (96-108) mmol/L Carbon Dioxide 26 (22-29) mmol/L Anion Gap 12 (12-20) BUN 8 L (9-16) mg/dL Creatinine 1.02 (0.5-1.4) mg/dL Estim Creat Clear Calc 103.0 Estimated GFR > 60 Random Glucose 106 (60-115) mg/dL Calcium 9.6 D (8.4-10.2) mg/dL Troponin I High Sens < 3.5 (<3.5-17.0) ng/L Urine Color Urine Appearance Urine pH (5.0-8.0) Ur Specific [place] (1.005-1.025) Urine Protein (NEG-TRACE) MG/DL Urine Glucose (UA) (NEG) MG/DL Urine Ketones (NEG) MG/DL Urine Blood (NEG) Urine Nitrite (NEG) Ur Leukocyte Esterase (NEG) Urine RBC (0) /HPF Urine WBC (0-4) /HPF Ur Squamous Epith Cells /LPF Urine Bacteria /LPF Urine Test (NEGATIVE) 11/27/21 11/27/21 Range/Units 16:36 16:36 WBC (4.8-10.8) X10*3/uL RBC (4.20-5.50) X10*6/uL Hgb (12.0-16.0) g/dl Hct (37.0-47.0) % MCV (80.0-98.0) fL MCH (27.0-33.0) pg MCHC (31.0-35.0) g/dl RDW (11.0-16.0) % Plt Count (160-400) X10*3/uL MPV (9.4-12.3) fL Immature Gran % (Auto) (0.0-0.4) % Neut % (Auto) (45-73) % Lymph % (Auto) (20-40) % Weston % (Auto) (2-11) % Eos % (Auto) (0-4) % Baso % (Auto) (0-2) % Lymph # (Auto) (1.2-4.9) X10*3/uL Weston # (Auto) (0.1-1.2) X10*3/uL Eos # (Auto) (0.0-0.4) X10*3/uL Baso # (Auto) (0.0-0.2) X10*3/uL Abs Immat Gran (auto) (0.00-0.03) X10*3/uL Absolute Neuts (auto) (2.0-8.3) x10*3/uL Absolute Nucleated RBC (0.0-0.012) X10*3/uL Nucleated RBC % (auto) (0.0-0.2) /100WBC Sodium (135-145) mmol/L Potassium (3.3-5.1) mmol/L Chloride (96-108) mmol/L Carbon Dioxide (22-29) mmol/L Anion Gap (12-20) BUN (9-16) mg/dL Creatinine (0.5-1.4) mg/dL Estim Creat Clear Calc Estimated GFR Random Glucose (60-115) mg/dL Calcium (8.4-10.2) mg/dL Troponin I High Sens (<3.5-17.0) ng/L Urine Color RED A Urine Appearance TURBID Urine pH 8.5 H (5.0-8.0) Ur Specific [place] 1.010 (1.005-1.025) Urine Protein 2+ H (NEG-TRACE) MG/DL Urine Glucose (UA) NEG (NEG) MG/DL Urine Ketones NEG (NEG) MG/DL Urine Blood 3+ H (NEG) Urine Nitrite NEG (NEG) Ur Leukocyte Esterase NEG (NEG) Urine RBC 76-150 H (0) /HPF Urine WBC 0 (0-4) /HPF Ur Squamous Epith Cells 2+ /LPF Urine Bacteria 1+ /LPF Urine Test NEGATIVE (NEGATIVE) ECG Data ECG #1: Attestation: I personally reviewed and interpreted this ECG as follows: ECG interpretation date: 11/27/21 ECG interpretation time: 12:31 Prior ECG tracings: available for review Interpretation: Vent. Rate: 088 BPM ? ? Atrial Rate: 088 BPM P-R Int: 164 ms? QRS Dur: 088 ms QT Int: 354 ms ? ? ? P-R-T Axes: 011 059 016 degrees QTc Int: 428 ms ? Normal sinus rhythm Normal ECG When compared with ECG of 02-JAN-2015 11:11, No significant change was found Discharge Plan Discharge Clinical Impression: GERD (gastroesophageal reflux disease), Acute costochondritis Patient Disposition: Home, Self-Care Instructions: Costochondritis (ED), Gastroesophageal Reflux Disease (DC) Additional Instructions: Follow up with your primary care provider. Return to the emergency department immediately if your symptoms worsen or if you develop any dizziness, shortness of breath, difficulty breathing, chest pain, blurry vision, loss of vision, nausea, vomiting, abdominal pain, fever, chills, back pain, or any other complaints. Prescriptions: New ondansetron 4 mg tablet,disintegrating 4 mg PO Q8H 3 Days Qty: 9 0RF No Action Prena1 True 30 mg iron- 1.4 mg-300 mg combo pack 1 pkg PO DAILY Qty: 60 0RF nitrofurantoin monohyd/m-cryst [Macrobid] 100 mg capsule 100 mg PO BID Qty: 14 0RF Rx Instructions: must administer with a meal/food ibuprofen 800 mg tablet 800 mg PO Q8H PRN (Reason: pain) Qty: 14 0RF oxycodone 5 mg tablet 5 mg PO Q6H PRN (Reason: pain) Qty: 14 0RF Referrals: Physician,None [Primary Care Provider] - 2 days (Follow up with your PCP. ) Stand Alone Forms: Work/School Release Interventions: ED Discharge Assessment Last Done: 11/27/21 17:43 Discharge Date/Time: 11/27/21 17:44 Print Language: Lithuanian
[2021-11-27] MEDS: Ketorolac Tromethamine 15 MG/ML VIAL IM (16:31)
[2021-11-27] MEDS: Ondansetron ODT 4 MG TAB.RAPDIS TRANSLINGU (16:32)
[2021-11-27] MEDS: Magnesium Hydrox/Alum Hydrox 30 ML ORAL.SUSP 15 ML PO (16:32)
[2021-11-27 16:49] LABS: UPreg QC Valid YES; Urine Pregnancy NEGATIVE (NEGATIVE)
[2021-11-27 17:39] LABS: Appearance Urine TURBID; Color Urine RED
[2021-11-27 17:40] LABS: UACC Culture Trigger NO
[2021-11-27 17:41] LABS: Glucose Urine UA NEG (NEG); PH 8.5 (5.0-8.0); Urine Blood 3+ (NEG)
[2021-11-27 17:42] VITALS: BP 118/64; PULSE 70; RESP 16; O2SAT 98
[2021-11-27 17:42] LABS: Leukocyte Esterase Urine NEG (NEG); Nitrite Urine NEG (NEG); Urine Ketones NEG (NEG); Urine Protein 2+ MG/DL (NEG-TRACE)
[2021-11-27 17:53] LABS: Bacteria Urine 1+ /LPF; Squamous Epithelial Cell Urine 2+ /LPF
[2021-11-27 17:54] LABS: WBC Urine 0 /HPF (0-4)
== END 2021-11-27 17:44 | disposition home or self-care (01) ==
PROVIDERS: Emergency Provider Emergency Medicine
DX: K21.9 Gastro-esophageal reflux disease without esophagitis (principal); M94.0 Chondrocostal junction syndrome [Tietze]; R10.13 Epigastric pain
CPT/HCPCS: 36415; 80048; 81001; 81025; 84484; 85025; 93005; 96372; 99284; J1885

== ENCOUNTER 2022-12-08 11:47 | Emergency (ER) | payer OTHER, SELFPAY ==
--- NOTE | ~2022-12-08 | XR_ITS ---
EXAMINATION: Left ankle and left foot. CLINICAL INDICATION: Left ankle pain. COMPARISON: None. TECHNIQUE: 3 views left ankle and 3 views left foot. FINDINGS: LEFT ANKLE: There is no visible acute fracture, dislocation or subluxation. Ankle mortise and subtalar joints are normal. No abnormal soft tissue swelling seen. LEFT FOOT: There is no visible acute fracture, dislocation or subluxation. The soft tissues are normal. XR/XR foot LT 2V IMPRESSION: Unremarkable left ankle exam. Unremarkable left foot exam.
--- NOTE | ~2022-12-08 | XR_ITS ---
EXAMINATION: Left ankle and left foot. CLINICAL INDICATION: Left ankle pain. COMPARISON: None. TECHNIQUE: 3 views left ankle and 3 views left foot. FINDINGS: LEFT ANKLE: There is no visible acute fracture, dislocation or subluxation. Ankle mortise and subtalar joints are normal. No abnormal soft tissue swelling seen. LEFT FOOT: There is no visible acute fracture, dislocation or subluxation. The soft tissues are normal. XR/XR ankle LT min 3V IMPRESSION: Unremarkable left ankle exam. Unremarkable left foot exam.
[2022-12-08 12:59] VITALS: BP 118/65; PULSE 85; RESP 16; TEMP 36.6; O2SAT 99; BMI 28.1
--- NOTE | 2022-12-08 13:00 | ED_ITS ---
HPI - General Adult General Chief complaint: Extremity Injury, Lower <BRITTNY Morales - Last Filed: 12/08/22 20:03> Stated complaint: l foot inj <BRITTNY Morales - Last Filed: 12/08/22 20:03> Time Seen by Provider: 12/08/22 13:44 <BRITTNY Morales - Last Filed: 12/08/22 20:03> Source: patient <BRITTNY Cabral - Last Filed: 12/08/22 14:32> Mode of arrival: ambulatory <BRITTNY Cabral - Last Filed: 12/08/22 14:32> Limitations: no limitations <BRITTNY Cabral - Last Filed: 12/08/22 14:32> History of Present Illness HPI narrative: Patient is a 22 year old assigned female at with no significant PMH presenting to the emergency department today with left ankle pain s/p twisting her ankle while playing with her little sister yesterday. Patient states that she has noticed increased pain and swelling to the area. Patient denies any dizziness, lightheadedness, abdominal pain, nausea, vomiting, fever, chills, blurry vision, double vision, loss of vision, chest pain, difficulty breathing, shortness of breath, back pain, night sweats, pain with urination, increased urinary frequency, increased urinary urgency, blood in her urine or stool, syncope or a near syncopal episode, bowel incontinence, bladder incontinence, bowel retention, bladder retention, or any other complaints at this time. <BRITTNY Cabral - Last Filed: 12/08/22 14:32> Onset (ago): day(s) <BRITTNY Cabral - Last Filed: 12/08/22 14:32> Location: left and lower extremity <BRITTNY Cabral - Last Filed: 12/08/22 14:32> Relieving factors: immobilization <BRITTNY Cabral - Last Filed: 12/08/22 14:32> Exacerbating factors: movement <BRITTNY Cabral - Last Filed: 12/08/22 14:32> Related Data Home medications: Previous Rx's Medication Instructions Recorded nitrofurantoin 100 mg PO BID #14 caps 03/06/21 monohydrate/macrocrystals 100 mg capsule (Macrobid) vit no.105-iron 30 1 pkg PO DAILY #60 ea 03/06/21 mg-folic acid 1.4 mg-dha 300 mg oral pack (Prena1 True) ibuprofen 800 mg tablet 800 mg PO Q8H PRN pain #14 tabs 07/31/21 oxycodone 5 mg tablet 5 mg PO Q6H PRN pain #14 tabs 07/31/21 ondansetron 4 mg disintegrating 4 mg PO Q8H 3 days #9 tabs 11/27/21 tablet naproxen 500 mg tablet 500 mg PO BID 7 days #14 tabs 12/08/22 <BRITTNY Morales - Last Filed: 12/08/22 20:03> Allergies/adverse reactions: Allergies Allergy/AdvReac Type Severity Reaction Status Date / Time No Known Allergies Allergy Verified 03/05/21 22:36 <BRITTNY Morales - Last Filed: 12/08/22 20:03> Review of Systems Review of Systems: Yes all other systems are reviewed and are negative <BRITTNY Cabral - Last Filed: 12/08/22 14:32> Constitutional: Constitutional: Reports no additional constitutional complaints <BRITTNY Cabral - Last Filed: 12/08/22 14:32> Eyes: Eyes: Reports no additional eye complaints and Denies loss of vision <BRITTNY Cabral Last Filed: 12/08/22 14:32> ENT: Reports system reviewed and no additional complaints, except as documented and Denies dizziness <BRITTNY Cabral - Last Filed: 12/08/22 14:32> Cardiovascular: Cardiovascular: Reports no additional cardiovascular complaint s and Denies dyspnea on exertion <BRITTNY Cabral - Last Filed: 12/08/22 14:32> Respiratory: Respiratory: Reports no additional respiratory complaints, Denies cough and Denies dyspnea on exertion <BRITTNY Cabral - Last Filed: 12/08/22 14:32> Gastrointestinal: Gastrointestinal: Reports no additional gastrointestinal complaints <BRITTNY Cabral - Last Filed: 12/08/22 14:32> Genitourinary: Genitourinary: Reports no additional female genitourinary complaints <BRITTNY Cabral - Last Filed: 12/08/22 14:32> Musculoskeletal: Musculoskeletal: Reports arthralgias, Reports joint swelling, Reports limited range of motion (left ankle - secondary to pain), Denies numbness and Denies tingling <BRITTNY Cabral - Last Filed: 12/08/22 14:32> Neurologic: Denies dizziness, Denies loss of vision, Denies numbness and Denies tingling <BRITTNY Cabral - Last Filed: 12/08/22 14:32> Psychiatric: Psychiatric: Reports no additional psychiatric complaints <BRITTNY Cabral - Last Filed: 12/08/22 14:32> Endocrine: Endocrine: Reports no additional endocrine complaints <BRITTNY Cabral - Last Filed: 12/08/22 14:32> Hematologic/Lymphatic: Hematologic/Lymphatic: Reports no additional hematologic/lymphatic complaints <BRITTNY Cabral - Last Filed: 12/08/22 14:32> Allergic/Immunologic: Allergic/Immunologic: Reports no additional allergic/immunologic complaints <BRITTNY Cabral - Last Filed: 12/08/22 14:32> [facility] Past Medical History Attestation statement: The following information was validated with the patient. <BRITTNY Cabral - Last Filed: 12/08/22 14:32> Source: old records reviewed and nursing notes reviewed <BRITTNY Cabral - Last Filed: 12/08/22 14:32> Medical History: Medical History Patient denies medical problems <BRITTNY Morales - Last Filed: 12/08/22 20:03> Social History Social History: Social History Alcohol intake: never Patient Tobacco Use Status: Never used Tobacco Substance Use Type: Marijuana Advance Directives: No Advance Directives Information Provided: No <BRITTNY Morales - Last Filed: 12/08/22 20:03> Physical Exam ED Vital Signs: Vital Signs - 24 hr 12/08/22 12:59 Temperature 97.8 F Pulse Rate 85 Respiratory Rate 16 Blood Pressure 118/65 Pulse Oximetry 99 Oxygen Delivery Method Room Air BMI result Body Mass Index 28.1 <BRITTNY Morales - Last Filed: 12/08/22 20:03> Vital Signs - 24 hr 12/08/22 12:59 Temperature 97.8 F Pulse Rate 85 Respiratory Rate 16 Blood Pressure 118/65 Pulse Oximetry 99 Oxygen Delivery Method Room Air BMI result Body Mass Index 28.1 <BRITTNY Cabral - Last Filed: 12/08/22 14:32> Const General: cooperative, healthy appearing and no acute distress <BRITTNY Cabral - Last Filed: 12/08/22 14:32> Nutritional Appearance: well nourished <BRITTNY Cabral - Last Filed: 12/08/22 14:32> Orientation/consciousness: oriented to person, oriented to place, oriented to time and patient oriented x3 <BRITTNY Cabral - Last Filed: 12/08/22 14:32> Limitations: no limitations <BRITTNY Cabral - Last Filed: 12/08/22 14:32> HENMT Head: Yes normal to inspection <BRITTNY Cabral - Last Filed: 12/08/22 14:32> Ears: hearing grossly normal bilaterally <BRITTNY Cabral - Last Filed: 12/08/22 14:32> General nose exam: Normal external nose present <BRITTNY Cabral - Last Filed: 12/08/22 14:32> Face and sinus: Yes normal facial exam, No abrasion and No laceration <BRITTNY Cabral - Last Filed: 12/08/22 14:32> Mouth: Normal oral and palatal mucosa present, no drooling and no muffled voice <BRITTNY Cabral - Last Filed: 12/08/22 14:32> Eyes General: appearance normal, both eyes and all related structures <BRITTNY Cabral - Last Filed: 12/08/22 14:32> Periorbital: periorbital findings normal <BRITTNY Cabral - Last Filed: 12/08/22 14:32> Eyelids: Yes eyelids normal <BRITTNY Cabral - Last Filed: 12/08/22 14:32> Conjunctivae: conjunctivae normal <BRITTNY Cabral - Last Filed: 12/08/22 14:32> Pupils: Equal, round and reactive pupils present <BRITTNY Cabral - Last Filed: 12/08/22 14:32> EOM: EOMs intact bilaterally <Aniyah RomanBRITTNY - Last Filed: 12/08/22 14:32> Neck Neck: Yes normal visual inspection and Yes full ROM <Aniyah RomanBRITTNY - Last Filed: 12/08/22 14:32> Chest Chest palpation & inspection: normal inspection of the chest <Aniyah CrawleyBRITTNY chavis - Last Filed: 12/08/22 14:32> Resp Effort & Inspection: normal respiratory effort and able to speak in complete sentences <Aniyah CrawleyBRITTNY chavis - Last Filed: 12/08/22 14:32> Cardio Rate: regular rate <Aniyah RomanBRITTNY - Last Filed: 12/08/22 14:32> GI Inspection: Yes normal to inspection <Aniyah CrawleyBRITTNY chavis - Last Filed: 12/08/22 14:32> Neuro General: oriented to person, oriented to place, oriented to time and patient oriented x3 <Aniyah CrawleyBRITTNY chavis - Last Filed: 12/08/22 14:32> Cranial nerves: Yes Equal, round and reactive pupils present <Aniyah Roman NM - Last Filed: 12/08/22 14:32> Cognition (Neuro): normal cognition <Aniyah CrawleyBRITTNY chavis - Last Filed: 12/08/22 14:32> Motor exam (neuro): 5/5 motor strength present throughout <Aniyah Roman NM - Last Filed: 12/08/22 14:32> Sensory Exam: Normal double simultaneous stimulation for sensation <Aniyah CrawleyBRITTNY chavis - Last Filed: 12/08/22 14:32> Coordination: [id number] test normal <Aniyah Crawleypartha [facility] Last Filed: 12/08/22 14:32> Extrem Other: minimal swelling present to the left ankle and pain with ROM <Aniyah CrawleyBRITTNY chavis - Last Filed: 12/08/22 14:32> General: Yes capillary refill normal <Aniyah CrawleyBRITTNY chavis - Last Filed: 12/08/22 14:32> Left lower extremity: ankle Details: tenderness, swelling and abnormal ROM Details: pain with active ROM and pain with passive ROM; no lacerations, no ecchymosis, no penetrating wound and achilles tendon exam normal <Aniyahlinwood CrawleyBRITTNY chavis - Last Filed: 12/08/22 14:32> Psych Appearance: grossly normal <BRITTNY Cabral - Last Filed: 12/08/22 14:32> Mental Status: mental status grossly normal <BRITTNY Cabral - Last Filed: 12/08/22 14:32> Affect: normal affect <BRITTNY Cabral - Last Filed: 12/08/22 14:32> Attitude: cooperative <BRITTNY Cabral - Last Filed: 12/08/22 14:32> Thought process: Normal thought process present <BRITTNY Cabral - Last Filed: 12/08/22 14:32> Thought content: Normal thought content present <BRITTNY Cabral Last Filed: 12/08/22 14:32> Insight: Good insight present (Psych) <BRITTNY Cabral - Last Filed: 12/08/22 14:32> Course Course Course Narrative: RME: 22 yold female presents to the ED for left foot pain. patient states twisting her foot yesterday after running after her son. Xray of ankle/foot ordered. <BRITTNY Morales - Last Filed: 12/08/22 20:03> Medications Administered Discontinued Medications Generic Name Dose Route Start Last Admin Trade Name Freq PRN Reason Stop Dose Admin Acetaminophen 975 mg 12/08/22 13:54 12/08/22 14:09 Acetaminophen 325 Mg Tablet PO 12/08/22 13:55 975 mg ONCE ONE Administration <BRITTNY Morales - Last Filed: 12/08/22 20:03> Medications Administered Discontinued Medications Generic Name Dose Route Start Last Admin Trade Name Freq PRN Reason Stop Dose Admin Acetaminophen 975 mg 12/08/22 13:54 12/08/22 14:09 Acetaminophen 325 Mg Tablet PO 12/08/22 13:55 975 mg ONCE ONE Administration <BRITTNY Cabral - Last Filed: 12/08/22 14:32> Procedures Orthopedic Splinting/Casting Injury #1: Side: left <BRITTNY Cabral - Last Filed: 12/08/22 14:32> Lower Extremity Injury Location: ankle <BRITTNY Cabral Last Filed: 12/08/22 14:32> Lower Extremity Immobilizer: boot orthosis <BRITTNY Cabral Last Filed: 12/08/22 14:32> Other Orthopedic Equipment: crutches <BRITTNY Cabral Last Filed: 12/08/22 14:32> Medical Decision Making Medical Decision Making MDM Narrative: Patient is a 22 year old assigned female at with no significant PMH presenting to the emergency department today with left ankle pain. Patient's p hysical exam showed limited ROM of the left ankle secondary to pain and mild swelling, no ecchymosis/deformities. Patient's left foot and ankle x-rays showed no acute process. I explained my physical exam findings as well as all test results to the patient and the patient's sister. I answered all questions asked by the patient and the patient's sister. Patient received a walking boot and crutches which she stated helped her symptoms significantly. Patient's PMS was intact prior to and after walking boot placement. I stressed the importance of the patient following up with her primary care provider and if pain persists >2 weeks, an orthopedic provider. I stressed the importance of the patient returning to the emergency department immediately if her symptoms were to worsen or if she were to develop any dizziness, shortness of breath, difficulty breathing, chest pain, blurry vision, loss of vision, nausea, vomiting, abdominal pain, fever, chills, back pain, or any other complaints. Patient and the patient's sister verbalized agreement and understanding with this treatment plan and discharge. <BRITTNY Cabral Last Filed: 12/08/22 14:32> Differential Diagnosis Differential Diagnoses: The differential diagnosis associated with the presentation includes <BRITTNY Cabral Last Filed: 12/08/22 14:32> ankle sprain, ankle strain <BRITTNY Cabral Last Filed: 12/08/22 14:32> Independent Interpretation I performed an independent interpretation of an: Plain X-Ray <BRITTNY Cabral Last Filed: 12/08/22 14:32> Interpretation: My interpretation is in agreement with the radiologist's impression of these imaging studies. EXAMINATION: Left ankle and left foot. CLINICAL INDICATION: Left ankle pain. COMPARISON: None. TECHNIQUE: 3 views left ankle and 3 views left foot. FINDINGS: LEFT ANKLE: There is no visible acute fracture, dislocation or subluxation. Ankle mortise and subtalar joints are normal. No abnormal soft tissue swelling seen. LEFT FOOT: There is no visible acute fracture, dislocation or subluxation. The soft tissues are normal. XR/XR foot LT 2V IMPRESSION: Unremarkable left ankle exam. ? Unremarkable left foot exam. Dictated By: Kash Dover MD Signed By: Electronically signed by Kash Dover MD 12/08/22 1334 <BRITTNY Cabral - Last Filed: 12/08/22 14:32> Discharge Plan Discharge Clinical Impression: Ankle sprain and strain <BRITTNY Morales - Last Filed: 12/08/22 20:03> Patient Disposition: Home, Self-Care <BRITTNY Morales Last Filed: 12/08/22 20:03> Instructions: Ankle Sprain (ED) <BRITTNY Morales - Last Filed: 12/08/22 20:03> Additional Instructions: Follow up with your primary care provider and if pain persists >2 weeks, an orthopedic provider. Return to the emergency department immediately if your symptoms worsen or if you develop any dizziness, shortness of breath, difficulty breathing, chest pain, blurry vision, loss of vision, nausea, vomiting, abdominal pain, fever, chills, back pain, or any other complaints. <BRITTNY Morales - Last Filed: 12/08/22 20:03> Prescriptions: New naproxen 500 mg tablet 500 mg PO BID 7 Days Qty: 14 0RF No Action Prena1 True 30 mg iron- 1.4 mg-300 mg combo pack 1 pkg PO DAILY Qty: 60 0RF nitrofurantoin monohyd/m-cryst [Macrobid] 100 mg capsule 100 mg PO BID Qty: 14 0RF Rx Instructions: must administer with a meal/food ibuprofen 800 mg tablet 800 mg PO Q8H PRN (Reason: pain) Qty: 14 0RF oxycodone 5 mg tablet 5 mg PO Q6H PRN (Reason: pain) Qty: 14 0RF ondansetron 4 mg tablet,disintegrating 4 mg PO Q8H 3 Days Qty: 9 0RF <BRITTNY Morales - Last Filed: 12/08/22 20:03> Referrals: [facility] [place]] (Call to establish and follow up with a primary care provider. If you already have a primary care provider, please follow up with them.) [facility] [place]Provider Group] (Call to establish and follow up with a primary care provider. If you already have a primary care provider, please follow up with them.) [facility] [Provider Group] (Call to establish and follow up with a primary care provider. If you already have a primary care provider, please follow up with them.) [facility] [place] [facility]] (If pain persists >2 weeks, call to establish and follow up with an orthopedic provider. ) <BRITTNY Morales - Last Filed: 12/08/22 20:03> Stand Alone Forms: Work/School Release <BRITTNY Morales - Last Filed: 12/08/22 20:03> Interventions: ED Discharge Assessment Last Done: 12/08/22 14:09 <BRITTNY Morales - Last Filed: 12/08/22 20:03> Discharge Date/Time: 12/08/22 14:11 <BRITTNY Morales - Last Filed: 12/08/22 20:03> Print Language: Syriac <BRITTNY Morales - Last Filed: 12/08/22 20:03>
[2022-12-08] MEDS: Acetaminophen 325 MG TABLET 975 MG PO (14:09)
== END 2022-12-08 14:11 | disposition home or self-care (01) ==
PROVIDERS: Emergency Provider Emergency Medicine
DX: S93.402A Sprain of unspecified ligament of left ankle, initial encounter (principal); M79.605 Pain in left leg; X50.1XXA Overexertion from prolonged static or awkward postures, initial encounter; Y93.9 Activity, unspecified; Y92.9 Unspecified place or not applicable; Y99.9 Unspecified external cause status; Z79.899 Other long term (current) drug therapy
CPT/HCPCS: 29515; 73610; 73620; 99283

== ENCOUNTER 2023-01-27 10:04 | Emergency (ER) | payer OTHER, SELFPAY ==
[2023-01-27 10:06] VITALS: BP 115/63; PULSE 90; RESP 16; TEMP 36.3; O2SAT 97; BMI 28.5
--- NOTE | 2023-01-27 10:20 | ED_ITS ---
HPI - Skin/Abscess/Foreign Bdy General Chief complaint: Skin/Abscess/Foreign Body Stated complaint: Rash Time Seen by Provider: 01/27/23 10:11 History of Present Illness HPI narrative: patient complains of itchy bumps that started in the hands in , arms, he chest and back which started several days ago There is no pain there is no difficulty breathing or swallowing no swelling in the throat Related Data Previous Rx's Medication Instructions Recorded nitrofurantoin 100 mg PO BID #14 caps 03/06/21 monohydrate/macrocrystals 100 mg capsule (Macrobid) vit no.105-iron 30 1 pkg PO DAILY #60 ea 03/06/21 mg-folic acid 1.4 mg-dha 300 mg oral pack (Prena1 True) ibuprofen 800 mg tablet 800 mg PO Q8H PRN pain #14 tabs 07/31/21 oxycodone 5 mg tablet 5 mg PO Q6H PRN pain #14 tabs 07/31/21 ondansetron 4 mg disintegrating 4 mg PO Q8H 3 days #9 tabs 11/27/21 tablet naproxen 500 mg tablet 500 mg PO BID 7 days #14 tabs 12/08/22 cetirizine 10 mg tablet 10 mg PO DAILY PRN rash/itch #14 01/27/23 tabs permethrin 5 % topical cream 1 appl topical Q14D 2 doses #60 01/27/23 grams prednisone 20 mg tablet 60 mg PO DAILY 3 days #9 tabs 01/27/23 Allergies Allergy/AdvReac Type Severity Reaction Status Date / Time No Known Allergies Allergy Verified 01/27/23 10:28 [facility] Past Medical History Source: nursing notes reviewed Medical History Patient denies medical problems Social History Social History Alcohol intake: never Patient Tobacco Use Status: Never used Tobacco Smoked in Last 30 Days: Yes Use of substances other than those prescribed or required for medical reasons: No Substance Use Type: Marijuana Advance Directives: No Advance Directives Information Provided: No Physical Exam Vital Signs: Vital Signs: Last Vital Signs Temp 97.4 F 01/27/23 10:06 Pulse 90 01/27/23 10:06 Resp 16 01/27/23 10:06 BP 115/63 01/27/23 10:06 Pulse Ox 97 01/27/23 10:06 O2 Del Method Room Air 01/27/23 10:06 BMI result Body Mass Index 28.5 general appearance is no acute distress comfortable relaxed cooperative breathing easily The eyes no redness or discharge The sinuses not congested The pharynx is clear with no swelling of lips tongue or uvula voice is normal no impairment of breathing or swallowing no redness swelling or exudate Neck is supple Chest clear to auscultation bilateral no wheezing Heart no murmur Extremities full range of motion x4 The skin there is a papular rash on arms back of hands, chest and back, there is no areas of erythema no evidence of cellulitis or folliculitis Course Course Course Narrative: patient is treated for possible scabies, or possible allergic rash with cetirizine prednisone and permethrin She is otherwise well appearing and comfortable with no other associated symptoms or complaints and is discharged Medications Administered Discontinued Medications Generic Name Dose Route Start Last Admin Trade Name Freq PRN Reason Stop Dose Admin Loratadine 10 mg 01/27/23 10:34 01/27/23 10:54 Loratadine 10 Mg Tablet PO 01/27/23 10:35 10 mg ONCE ONE Administration Prednisone 60 mg 01/27/23 10:34 01/27/23 10:53 Prednisone 20 Mg Tablet PO 01/27/23 10:35 60 mg ONCE ONE Administration Medical Decision Making Differential Diagnosis Differential Diagnoses: The differential diagnosis associated with the presentation includes (scabies, mites, bed buts) Chronic Conditions Patient?s care impacted by: Other (homelessness and iv drug use) Social Determinants Patient?s care significantly limited by Social Determinants of Health including: Low income and Alcoholism and drug addiction in family Discharge Plan Discharge Clinical Impression: Rash Patient Disposition: Home, Self-Care Additional Instructions: the rash could be from allergy or possibly from scabies so we are treating for both For scabies we are using permethrin cream, apply to the body from the neck to the toes and leave on for 12 hours, then shower and wash off the cream This should be repeated 2 weeks later For possible allergic inflammation we are treating with prednisone and antihistamine, if needed for itching it is okay to repeat the cetirizine dosing a 2nd time, it is okay to use morning and night, but if 1 tablet once a day is adequate there is no need to repeat the dose Follow with primary doctor next week if not better Return to the ER any time any worse condition or any concerns Prescriptions: New permethrin 5 % cream 1 appl topical Q14D Qty: 60 0RF Rx Instructions: apply second treatment 14 days after first treatment if live lice remain prednisone 20 mg tablet 60 mg PO DAILY 3 Days Qty: 9 0RF cetirizine 10 mg tablet 10 mg PO DAILY PRN (Reason: rash/itch) Qty: 14 0RF No Action Prena1 True 30 mg iron- 1.4 mg-300 mg combo pack 1 pkg PO DAILY Qty: 60 0RF nitrofurantoin monohyd/m-cryst [Macrobid] 100 mg capsule 100 mg PO BID Qty: 14 0RF Rx Instructions: must administer with a meal/food ibuprofen 800 mg tablet 800 mg PO Q8H PRN (Reason: pain) Qty: 14 0RF oxycodone 5 mg tablet 5 mg PO Q6H PRN (Reason: pain) Qty: 14 0RF ondansetron 4 mg tablet,disintegrating 4 mg PO Q8H 3 Days Qty: 9 0RF naproxen 500 mg tablet 500 mg PO BID 7 Days Qty: 14 0RF Stand Alone Forms: Work/School Release Interventions: ED Discharge Assessment Last Done: 01/27/23 10:55 Discharge Date/Time: 01/27/23 10:56
[2023-01-27] MEDS: predniSONE 20 MG TABLET 60 MG PO (10:53)
[2023-01-27] MEDS: Loratadine 10 MG TABLET PO (10:54)
== END 2023-01-27 10:56 | disposition home or self-care (01) ==
PROVIDERS: Emergency Provider Emergency Medicine
DX: R21 Rash and other nonspecific skin eruption (principal)
CPT/HCPCS: 99283; 99284

== ENCOUNTER 2023-08-12 13:17 | Emergency (ER) | payer OTHER, SELFPAY ==
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
[2023-08-12 13:44] VITALS: BP 112/70; PULSE 102; RESP 18; TEMP 36.4; O2SAT 99; BMI 32.5
[2023-08-12 14:46] VITALS: BP 108/66; PULSE 86; RESP 16; TEMP 36.6; O2SAT 96
[2023-08-12] MEDS: Ketorolac Tromethamine 15 MG/ML VIAL IM (14:52)
[2023-08-12] MEDS: Cyclobenzaprine HCl 5 MG TABLET PO (14:53)
== END 2023-08-12 14:52 | disposition home or self-care (01) ==
PROVIDERS: Emergency Provider Student in an Organized Health Care Education/Training Program
DX: Z04.1 Encounter for examination and observation following transport accident (principal); R51.9 Headache, unspecified
CPT/HCPCS: 96372; 99284; J1885

== ENCOUNTER 2024-04-28 08:47 | Emergency (ER) | payer OTHER, SELFPAY ==
--- NOTE | ~2024-04-28 | US_ITS ---
EXAMINATION: US ABDOMEN LIMITED CLINICAL INFORMATION: Right upper quadrant abdominal pain, rule out gallbladder etiology. COMPARISON: None available. TECHNIQUE: Real-time imaging of the right upper quadrant abdominal viscera. FINDINGS: GALLBLADDER: Normal. The gallbladder is physiologically distended without evidence of stones, sludge, polyps, wall thickening or pericholecystic fluid. COMMON BILE DUCT: Normal in caliber measuring 0.52 cm in diameter. US/US abdomen limited IMPRESSION: No evidence of gallstones or hepatobiliary duct dilatation. Electronically signed by: Lacy Taylor MD 04/28/2024 11:58 AM EDT
[2024-04-28 09:02] VITALS: BP 108/61; PULSE 82; RESP 16; TEMP 36.7; O2SAT 99; BMI 30.5
--- NOTE | 2024-04-28 09:08 | ECG_ITS ---
Test Reason : chest pain Blood Pressure : / mmHG Vent. Rate : 082 BPM Atrial Rate : 082 BPM P-R Int : 178 ms QRS Dur : 084 ms QT Int : 364 ms P-R-T Axes : 039 060 015 degrees QTc Int : 425 ms Normal sinus rhythm Possible Left atrial enlargement Borderline ECG When compared with ECG of 27-NOV-2021 12:31, No significant change was found Referred By: Generic ED Physician Electronically Signed By:JANIE BORJAS
--- NOTE | 2024-04-28 10:22 | ED.CHESTPAIN ---
HPI - Chest Pain General Chief Complaint: Chest Pain Stated Complaint: Pain under R breast Time Seen by Provider: 04/28/24 10:20 Source: patient and RN notes reviewed Mode of arrival: ambulatory Limitations: no limitations History of Present Illness ED Provider: Heydi Arguello PA-C HPI narrative: This is a 23-year-old female, 5 months , who presents emergency department with complaints of right-sided chest/abdominal pain for the last year. Patient states that she has noticed pain on the right side just underneath her breast for the last year. Denies trauma or injury to this area. She states that the pain worsens at night especially when she is lying on that side. She states that since she has become the pain has become more frequent. She states that over the last 3 days she has vomited which is atypical of her. She denies any fevers, chills, diarrhea or constipation. No chest pain or shortness for breath. Denies pleuritic chest pain. She states that she has felt the pain travels into her back/right shoulder No other complaints or concerns at this time. Timing of current episode: episodic Prior episodes: Yes Onset: during rest Pain location: right chest Severity: moderate Quality: aching Relieving factors: movement Exacerbating factors: movement Treatment prior to arrival: none Risk Factors Coronary artery disease risk factors: none Thoracic aortic dissection risk factors: none Pulmonary embolism risk factors: Related Data On Oral Contraceptives: No Previous Rx's ?Medication ?Instructions ?Recorded nitrofurantoin 100 mg PO BID #14 caps 03/06/21 monohydrate/macrocrystals 100 mg capsule (Macrobid) vit no.105-iron 30 1 pkg PO DAILY #60 ea 03/06/21 mg-folic acid 1.4 mg-dha 300 mg oral pack (Prena1 True) ibuprofen 800 mg tablet 800 mg PO Q8H PRN pain #14 tabs 07/31/21 oxycodone 5 mg tablet 5 mg PO Q6H PRN pain #14 tabs 07/31/21 ondansetron 4 mg disintegrating 4 mg PO Q8H 3 days #9 tabs 11/27/21 tablet naproxen 500 mg tablet 500 mg PO BID 7 days #14 tabs 12/08/22 cetirizine 10 mg tablet 10 mg PO DAILY PRN rash/itch #14 01/27/23 tabs permethrin 5 % topical cream 1 appl topical Q14D 2 doses #60 01/27/23 grams prednisone 20 mg tablet 60 mg (3 x 20 mg) PO DAILY 3 days 01/27/23 #9 tabs cyclobenzaprine 5 mg tablet 5 mg PO TID PRN muscle spasm 7 08/12/23 days #21 tabs Allergies Allergy/AdvReac Type Severity Reaction Status Date / Time No Known Allergies Allergy Verified 04/28/24 09:02 Review of Systems Review of Systems: Yes all other systems are reviewed and are negative Constitutional: Constitutional: Reports as per [facility] Past Medical History Attestation statement: The following information was validated with the patient. Medical History Patient denies medical problems Social History Social History Alcohol intake: never Patient Tobacco Use Status: Never used Tobacco Substance Use Type: Marijuana Advance Directives: No Advance Directives Information Provided: Yes Do you have a plan to hurt others: No Plan Physical Exam Vital Signs: Vital Signs: Last Vital Signs Temp 97.9 F 04/28/24 12:00 Pulse 68 04/28/24 12:00 Resp 16 04/28/24 09:02 BP 104/61 04/28/24 12:00 Pulse Ox 99 04/28/24 12:00 O2 Del Method Room Air 04/28/24 12:00 BMI result Body Mass Index 30.5 Const: General: cooperative, comfortable and no acute distress Orientation/consciousness: patient oriented x3 Limitations: no limitations HEENT: Head: Yes normal to inspection, Yes normocephalic and Yes atraumatic Ears: hearing grossly normal bilaterally General nose exam: Normal external nose present Face and sinus: Yes normal facial exam Mouth: Normal oral and palatal mucosa present, oropharynx normal and moist mucous membranes Throat: Yes posterior oropharynx normal Eyes: General: appearance normal, both eyes and all related structures Eyelids: Yes eyelids normal Conjunctivae: conjunctivae normal Sclerae: sclerae normal Pupils: Equal, round and reactive pupils present EOM: EOMs intact bilaterally Neck: Neck: Yes normal visual inspection, Yes full ROM and Yes no lymphadenopathy Lymphatic: no lymphadenopathy noted Chest: Other: Mild tenderness palpation along the anterior chest wall and ribs Chest palpation & inspection: normal inspection of the chest Resp: Effort & Inspection: normal respiratory effort and able to speak in complete sentences Auscultation: clear to auscultation bilaterally, no crackles, no rales, no rhonchi and no wheezes Cardio: Rate: regular rate Rhythm: regular rhythm Heart sounds: S1 normal heart sound present and S2 normal heart sound present GI: Other: Abdomen is soft, with mild tenderness in the right upper quadrant, no epigastric tenderness. Inspection: Yes normal to inspection Skin: General skin exam: no rashes or lesions noted Trauma: no lacerations or abrasions Wounds: no wounds Neuro: General: patient oriented x3 and moves all extremities Cranial nerves: Yes Equal, round and reactive pupils present Extrem: General: Yes normal to inspection Right upper extremity: normal to inspection Left upper extremity: normal to inspection Right lower extremity: normal to inspection Left lower extremity: normal to inspection Course Reevaluation(s) Reevaluation #1: Ultrasound returns, unremarkable. Blood work returns, slight anemia noted, chemistry within normal limits. Troponin less than 2.7. EKG normal sinus rhythm, no ST elevation or depression. Workup today was reassuring. It is unclear what is causing her symptoms however given that this has been ongoing for the last year, patient should follow-up with PCP. Avoided any chest x-ray or images secondary to risks versus benefits given patient is 5 months . She has no shortness a breath, pleuritic chest pain to warrant any additional images at this time. Lungs are clear to auscultation bilaterally. Given conservative measures as well as strict return precautions. She understands agrees with plan. Patient stable for discharge. Time: 12:55 Medical Decision Making Medical Decision Making MDM Narrative: This is a 23-year-old 5 months female who presents emergency department with complaints of pain right anterior chest, and right upper quadrant for the last year. States that the pain worsens with lying down especially on her right side. She states that since she has been come her pain has become more consistent. She states that over the last 3 days she has had multiple episodes of vomiting which is atypical. She denies any vaginal bleeding or discharge. No complications with the thus far. Denies taking any medications to treat her symptoms. Lungs are clear to auscultation bilaterally. She expresses no shortness of breath or chest pain or pleuritic chest pain. No other complaints or concerns at this time. Differential Diagnosis Differential Diagnoses: The differential diagnosis associated with the presentation includes Cholecystitis, cholelithiasis, costochondritis, pneumonia-unlikely Admission/Observation Consideration of admission/observation: Escalation of care including admission/observation considered Lab Data MDM Lab Attestation statement: I reviewed the patient's lab results. See course comment 04/28/24 11:49 04/28/24 11:49 Labs: Lab Results 04/28/24 Range/Units 11:49 WBC 10.8 (4.8-10.8) X10*3/uL RBC 3.84 L (4.20-5.50) X10*6/uL Hgb 11.3 L (12.0-16.0) g/dl Hct 33.3 L (37.0-47.0) % MCV 86.7 (80.0-98.0) fL MCH 29.4 (27.0-33.0) pg MCHC 33.9 (31.0-35.0) g/dl RDW 14.1 (11.0-16.0) % Plt Count 264 (160-400) X10*3/uL MPV 11.3 (9.4-12.3) fL Immature Gran % (Auto) 0.4 (0.0-0.4) % Neut % (Auto) 77.5 H (45-73) % Lymph % (Auto) 16.3 L (20-40) % Schley % (Auto) 4.9 (2-11) % Eos % (Auto) 0.7 (0-4) % Baso % (Auto) 0.2 (0-2) % Lymph # (Auto) 1.8 (1.2-4.9) X10*3/uL Schley # (Auto) 0.5 (0.1-1.2) X10*3/uL Eos # (Auto) 0.1 (0.0-0.4) X10*3/uL Baso # (Auto) 0.0 (0.0-0.2) X10*3/uL Abs Immat Gran (auto) 0.04 H (0.00-0.03) X10*3/uL Absolute Neuts (auto) 8.4 H (2.0-8.3) x10*3/uL Absolute Nucleated RBC 0.000 (0.0-0.012) X10*3/uL Nucleated RBC % (auto) 0.0 (0.0-0.2) /100WBC Sodium 136 (135-145) mmol/L Potassium 3.6 (3.3-5.1) mmol/L Chloride 107 (96-108) mmol/L Carbon Dioxide 19 L (22-29) mmol/L Anion Gap 14 (12-20) BUN 4 L (9-16) mg/dL Creatinine 0.62 (0.5-1.4) mg/dL Estim Creat Clear Calc 158.2 Estimated GFR > 60 Random Glucose 80 (60-115) mg/dL Calcium 9.2 (8.4-10.2) mg/dL Magnesium 1.9 (1.6-2.6) mg/dL Total Bilirubin 0.2 (0.0-1.0) mg/dL Direct Bilirubin < 0.2 (0.0-0.5) mg/dL AST 12 (5-31) U/L ALT 11 (0-31) U/L Alkaline Phosphatase 61 (39-117) U/L Troponin I High Sens < 2.7 (<3.5-17.0) ng/L Total Protein 6.8 (6.5-8.0) g/dL Albumin 3.6 (3.5-5.0) g/dL Lipase 9 (8-78) U/L Radiology Impression Discussion of test interpretation with radiology: I have reviewed the radiologist's reading. Radiologist Impression: US/US abdomen limited IMPRESSION: No evidence of gallstones or hepatobiliary duct dilatation. Electronically signed by: Lacy Taylor MD 04/28/2024 11:58 AM EDT Dictated By: Lacy Taylor External Record Review External record reviewed: Inpatient record, Office record, Outpatient record, Prior outpatient labs, Prior outpatient radiology, Primary care record and Outside ED record Discharge Plan Discharge Clinical Impression: Rib pain on right side Patient Disposition: Home, Self-Care Instructions: Costochondritis (ED) Additional Instructions: You were seen in the emergency department due to ongoing pain in your right rib region. We will obtain labs, which were normal. You do have slight anemia, follow-up with your primary care physician/OBGYN regarding this. It is unclear what is causing you to have the symptoms however your workup today was reassuring. Your abdominal ultrasound does not reveal any abnormalities with your gallbladder. Your workup today was reassuring. Rest, ice or heat, massage can help, if any new or worsening symptoms occur including but not limited to severe shortness for breath, severe pain, please return for re-evaluation Prescriptions: No Action Prena1 True 30 mg iron- 1.4 mg-300 mg combo pack 1 pkg PO DAILY Qty: 60 0RF nitrofurantoin monohyd/m-cryst [Macrobid] 100 mg capsule 100 mg PO BID Qty: 14 0RF Rx Instructions: must administer with a meal/food ibuprofen 800 mg tablet 800 mg PO Q8H PRN (Reason: pain) Qty: 14 0RF oxycodone 5 mg tablet 5 mg PO Q6H PRN (Reason: pain) Qty: 14 0RF ondansetron 4 mg tablet,disintegrating 4 mg PO Q8H 3 Days Qty: 9 0RF naproxen 500 mg tablet 500 mg PO BID 7 Days Qty: 14 0RF permethrin 5 % cream 1 appl topical Q14D Qty: 60 0RF Rx Instructions: apply second treatment 14 days after first treatment if live lice remain prednisone 20 mg tablet 60 mg PO DAILY 3 Days Qty: 9 0RF cetirizine 10 mg tablet 10 mg PO DAILY PRN (Reason: rash/itch) Qty: 14 0RF cyclobenzaprine 5 mg tablet 5 mg PO TID PRN (Reason: muscle spasm) 7 Days Qty: 21 0RF Print Language: Maldivian
--- NOTE | 2024-04-28 10:25 | PC.NURSE ---
Out of bed to bathroom. Awaiting ED provider evaluation.
[2024-04-28 11:53] LABS: MANUAL DIFF FLAG NO
[2024-04-28 11:58] LABS: Basophils Percent Auto 0.2 % (0-2); Eosinophils Absolute Auto 0.1 X10*3/uL (0.0-0.4); Eosinophils Percent Auto 0.7 % (0-4); Hematocrit 33.3 % (37.0-47.0); Hemoglobin 11.3 g/dl (12.0-16.0); Imm Gran Abs Auto 0.04 X10*3/uL (0.00-0.03); Imm Gran Pct Auto 0.4 % (0.0-0.4); Lymphocytes Absolute Auto 1.8 X10*3/uL (1.2-4.9); Lymphocytes Percent Auto 16.3 % (20-40); Mean Corpuscular HGB Conc 33.9 g/dl (31.0-35.0); Mean Corpuscular Hemoglobin 29.4 pg (27.0-33.0); Mean Corpuscular Volume 86.7 fL (80.0-98.0); Mean Platelet Volume 11.3 fL (9.4-12.3); Monocytes Absolute Auto 0.5 X10*3/uL (0.1-1.2); Monocytes Percent Auto 4.9 % (2-11); Neutrophils Absolute Auto 8.4 x10*3/uL (2.0-8.3); Neutrophils Percent Auto 77.5 % (45-73); Platelet Count 264 X10*3/uL (160-400); Red Blood Count 3.84 X10*6/uL (4.20-5.50); Red Cell Distribution Width 14.1 % (11.0-16.0); White Blood Count 10.8 X10*3/uL (4.8-10.8)
[2024-04-28 12:00] VITALS: BP 104/61; PULSE 68; TEMP 36.6; O2SAT 99
[2024-04-28 12:13] LABS: Alanine Aminotransferase 11 U/L (0-31); Albumin Level 3.6 g/dL (3.5-5.0); Alkaline Phosphatase 61 U/L (39-117); Anion Gap 14 (12-20); Aspartate Amino Transferase 12 U/L (5-31); Bilirubin Direct < 0.2 mg/dL (0.0-0.5); Bilirubin Total 0.2 mg/dL (0.0-1.0); Blood Urea Nitrogen 4 mg/dL (9-16); Calcium 9.2 mg/dL (8.4-10.2); Carbon Dioxide 19 mmol/L (22-29); Chloride 107 mmol/L (96-108); Creatinine Clr Calc Pharmacy 158.2; Estimated Glomerular Filt Rate > 60; Glucose Random 80 mg/dL (60-115); Lipase 9 U/L (8-78); Magnesium 1.9 mg/dL (1.6-2.6); Potassium 3.6 mmol/L (3.3-5.1); Sodium 136 mmol/L (135-145); Total Protein 6.8 g/dL (6.5-8.0)
[2024-04-28 12:26] LABS: Troponin-I High Sensitivity < 2.7 ng/L (<3.5-17.0)
[2024-04-28 12:58] VITALS: BP 104/61; PULSE 68; RESP 16; TEMP 36.6; O2SAT 99
== END 2024-04-28 12:59 | disposition home or self-care (01) ==
PROVIDERS: Physician Assistant Medical; Emergency Provider Emergency Medicine
DX: O26.892 Other specified pregnancy related conditions, second trimester (principal); R10.9 Unspecified abdominal pain; R07.89 Other chest pain; R07.81 Pleurodynia; Z3A.24 24 weeks gestation of pregnancy; Z79.899 Other long term (current) drug therapy
CPT/HCPCS: 36415; 76705; 80048; 80076; 83690; 83735; 84484; 85025; 93005; 99284